=== PATIENT | female | born 1975 | race African-American/Black ===

== ENCOUNTER 2016-12-16 22:17 | Emergency (ER) | payer OTHER ==
[2016-12-16 20:47] LABS: BASOPHILS 0.2 %; BASOPHILS ABSOLUTE 0.02 10/3/uL (0.0-0.16); EOSINOPHILS 1.3 %; EOSINOPHILS ABSOLUTE 0.13 10/3/uL (0.0-0.53); ER CBC TAT 0 Hrs 08 Mins; HEMATOCRIT 36.9 % (36.0-48.0); HEMOGLOBIN 12.2 g/dL (12.0-16.0); IMMATURE GRANULOCYTES 0.2 %; IMMATURE GRANULOCYTES ABSOLUTE 0.02 10/3/uL (0.0-0.11); LYMPHOCYTES 40.7 %; LYMPHOCYTES ABSOLUTE 3.96 10/3/uL (0.67-4.30); MEAN CORPUS HGB CONC 33.1 g/dL (32.0-36.0); MEAN CORPUSCULAR VOLUME 90.7 fL (80-100); MEAN PLATELET VOLUME 9.9 fL (9.2-13.0); MONOCYTES 5.2 %; MONOCYTES ABSOLUTE 0.51 10/3/uL (0.21-1.20); NEUTROPHILS 52.4 %; PLATELET COUNT 362 10/3/uL (150-400); RBC DISTRIBUTION WIDTH 13.5 % (12.0-16.0); RED CELL COUNT 4.07 10/6/uL (4.0-5.6); WHITE BLOOD CELLS 9.7 10/3/uL (4.5-10.5)
[2016-12-16 20:48] LABS: MANUAL DIFF NO %
[2016-12-16 20:55] LABS: PARTIAL THROMBO TIME 30.3 SEC (22.5-37.2); PROTIME (NOT ORD) 12.6 SEC (12.0-14.5)
[2016-12-16 21:05] LABS: BUN (BLOOD UREA NITROGEN) 12 MG/DL (6-23); CALCIUM, SERUM 8.6 MG/DL (8.5-10.4); CHEST PAIN PROFILE TAT 0 Hrs 26 Mins; CHLORIDE, SERUM 106 MMOL/L (96-112); CO2 (CARBON DIOXIDE) 32 MMOL/L (24-34); CREATININE 0.91 MG/DL (0.55-1.02); GFR AFRICAN AMERICAN 91 ML/MIN (>=60); GFR NON AFRICAN AMERICAN 78 ML/MIN (>=60); GLUCOSE, SERUM 112 MG/DL (60-99); POTASSIUM, SERUM 3.5 MMOL/L (3.5-5.3); SODIUM, SERUM 142 MMOL/L (135-148); TROPONIN I <0.02 NG/ML (<0.05)
[2016-12-16 22:12] LABS: D-DIMER QUANTITATIVE 0.52 ug/mLFEU (< 0.50)
[~2016-12-16 22:17] MED LIST: ADVAIR INH; ALLERGY INJECTIONS IM/SC; ALLERGY INJECTIONS SC; ATV.5 PO; C5 PO; FLEXERIL PO; LOVENOX1C SC; METAMUCIL CAN7 OZ PO; MIRALAXPKT PO; NORCO1 TA1 PO; PRILOSEC40 MG PO; PROVENTSOL INH; PROVHFA INH; TESS PO; XARELTO15 MG PO; XARELTO20 MG PO; ZOL50 PO
== END 2016-12-17 01:42 | disposition home or self-care (01) ==
LOC: ER 22:17
PROVIDERS: Emergency Medicine
DX: R00.2 Palpitations (principal); G43.909 Migraine, unspecified, not intractable, without status migrainosus; M25.512 Pain in left shoulder; J45.909 Unspecified asthma, uncomplicated; I26.99 Other pulmonary embolism without acute cor pulmonale; Z90.710 Acquired absence of both cervix and uterus; Z79.01 Long term (current) use of anticoagulants; Z79.899 Other long term (current) drug therapy
CPT/HCPCS: 71020; 71275; 80048; 83735; 84484; 85025; 85379; 85610; 85730; 93005; 93225; 96372; 99285; A9270-GY; J2550; J2800; Q9967